=== PATIENT | female | born 1965 | race Caucasian/White ===

== ENCOUNTER 2017-09-12 12:51 | Emergency (ER) | payer BC ==
[2017-09-12 13:12] VITALS: BP 121/66
--- NOTE | 2017-09-12 13:40 | UC ---
Skin Complaint HPI - HPI Summary HPI Summary: noticed red jennifer on R wrist 5 days ago, no known injury. was seen by PCP yesterday and had xray which was neg. getting worse, more red and swollen, painful - History of Current Complaint Chief Complaint: UCSkin Time Seen by Provider: 09/12/17 13:22 Stated Complaint: WRIST SWELLING Hx Obtained From: Patient Hx Last Menstrual Period: 02/04/18 ?: No Onset/Duration: Gradual Onset Onset Severity: Mild Current Severity: Moderate Pain Intensity: 8 Aggravating Factor(s): Touch Alleviating Factor(s): Nothing - tried ibuprofen Associated Signs & Symptoms: Positive: Negative. Negative: Shivering, Fever, Chills, Drainage - Allergy/Home Medications Allergies/Adverse Reactions: Allergies Allergy/AdvReac Type Severity Reaction Status Date / Time No Known Allergies Allergy Verified 09/12/17 13:12 Home Medications: Home Medications Ibuprofen 800 mg PO TID 09/12/17 [History Confirmed 09/12/17] Review of Systems Constitutional: Negative Respiratory: Negative Cardiovascular: Negative Neurological: Negative All Other Systems Reviewed And Are Negative: Yes PMH/Surg Hx/FS Hx/Imm Hx Previously Healthy: Yes Psychological History: Depression - Surgical History Surgical History: Yes Surgery Procedure, Year, and Place: T&A at age 8 - Family History Known Family History: Positive: None - Social History Occupation: Employed Part-time - [employer] teacher Lives: With Family Alcohol Use: Weekly Substance Use Type: None Smoking Status (MU): Former Smoker Length of Time of Smoking/Using Tobacco: 5 years Have You Smoked in the Last Year: No Physical Exam Triage Information Reviewed: Yes Appearance: Well-Appearing, No Pain Distress, Well-Nourished Vital Signs: Initial Vital Signs Temp 98.1 F 09/12/17 13:06 Pulse 58 09/12/17 13:06 Resp 16 09/12/17 13:06 BP 121/66 09/12/17 13:06 Pulse Ox 99 09/12/17 13:06 Vital Signs Reviewed: Yes Respiratory Exam: Normal Respiratory: Positive: Lungs clear Cardiovascular Exam: Normal Musculoskeletal Exam: Normal Skin: Positive: Other - R wrist and forearm erythemic, swollen, small area volar wrist that is darker and possibly site of skin break (although no definite skin break noted) Course/Dx - Differential Diagnoses - Skin Complaint Differential Diagnoses: Cellulitis, Contact Dermatitis, Foreign Body, Local Allergic Reaction - Diagnoses Provider Diagnoses: cellulitis R arm Discharge - Sign-Out/Discharge Documenting (check all that apply): Discharge/Admit/Transfer - Discharge Plan Condition: Stable Disposition: HOME Patient Education Materials: Cellulitis (ED) Referrals: Kristy Lazar MD [Primary Care Provider] - 2 Days (for recheck) Additional Instructions: elevate arm and apply warm packs take antibiotic as prescribed use ibuprofen as directed if needed for pain report to ER if you experience fever >101, chills or increasing pain/swelling - Billing Disposition and Condition Condition: STABLE Disposition: HOME
== END 2017-09-12 13:52 | disposition home or self-care (01) ==
LOC: UCEAST 12:51
DX: L03.113 Cellulitis of right upper limb (principal); F32.9 Major depressive disorder, single episode, unspecified; Z87.891 Personal history of nicotine dependence
CPT/HCPCS: 99212; G0463